=== PATIENT | male | born 1970 | race Caucasian/White ===

== ENCOUNTER 2017-07-16 06:07 | Inpatient (IN) | payer OTHER ==
[~2017-07-16] VITALS: Ht 185.4 cm; Wt 119.8 kg
[2017-07-16] VITALS (8 sets, daily range): BP systolic 96–148; BP diastolic 63–86
--- NOTE | ~2017-07-16 | PR ---
[place], [place] PROGRESS NOTE NAME: SARITHA ESPINOZA [facility] #: [id number] UNIT #: [id number] ROOM: 504 DOCTOR: ALYCE HERNANDEZ MD,MIGUELITO BIRTHDATE: [birth year] DOS: 07/17/2017 PULMONARY FOLLOWUP SUBJECTIVE: He has been noted comfortable at this time, resting on the bed. Chest tube remains in place in the right hemithorax. It had been connected to drainage. The patient noted some subcutaneous emphysema, Dilaudid for this patient in the last 24 hours. He has not been noted symptoms of chest pain, air leak was noted for the chest tube at times. The patient does have symptoms of hemoptysis. The chest pain has been controlled with use of pain medications. OBJECTIVE: VITAL SIGNS: Normal temperature, respiratory rate 18, heart rate 86, blood pressure 168/86. The pulse oxygen saturation for the patient recorded on 2 liters nasal cannula 95% saturation. HEENT: Chronic obesity. NECK: Supple. CARDIOVASCULAR: S1, S2 audible. LUNGS: Without any wheezing or crackles. Breaths are noted mild to moderate decreased bilaterally. ABDOMEN: Soft, nontender. LABORATORY DATA: BMP today: BUN and creatinine were normal, glucose 133. The liver function tests normal. PT/PTT normal today. The chest x-ray of patient noted well-expanded lungs, moderate area of subcutaneous emphysema, lung remained expanded. CT scan of the chest that was ordered by myself was done this morning and personally reviewed. The chest tube remains in place in the lateral portion of the chest wall. Lung remained expanded. 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 There was area of paraseptal emphysema changes noted, which may be related to the current underlying intrinsic lung disease. IMPRESSION: 1. The patient with spontaneous pneumothorax. The patient in the right side with air leak. 2. 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 3. History of chronic nicotine abuse. 4. Chronic moderate obesity. Urine drug screen was also noted with ____ confirmed absence of any illicit drug use as well. PLAN OF MANAGEMENT: The patient needs to be transferred to another facility for thoracic surgery consultation and the VATS procedure for the most definitive medical management of recurrent pneumothorax as the recurrence of the pneumothorax will be noted extremely high for the patient with this current lung condition. It is also necessary to manage the air leak as well. Left side lung also noted significant paraseptal emphysema changes of status for this patient, [place], [place] PROGRESS NOTE NAME: SARITHA ESPINOZA UNIT #: [id number] ROOM: [facility] DOCTOR: ALYCE HERNANDEZ MD,MIGUELITO BIRTHDATE: [birth year] which are noted in the pleural surface with multiple areas of irregular cystic lesions in the left lung as well. Continuation of bronchodilator, the chest tube remains to suction. The transfer recommendation has been discussed with the patient in detail and he accepted that. The case was also discussed with Dr. Olesya Sellers who is taking care of this patient today as the primary care attending for the transfer arrangement. I did speak with Dr. Cuello, he is a thoracic surgeon at [facility]. If the patient is transferred there, he will be taking over the patient and agreed with the transfer as well. All the medical records including the CT scans for this patient and actions will be sent along with the patient at the time of the transfer. The patient was told about absolute tobacco cessation, which will be mandatory for this condition to avoid any progression. MIGUELITO MEAD MD CM:PNTRANS [id number] MIGUELITO HERNANDEZ MD 07/17/[id number] interface
--- NOTE | ~2017-07-16 | EKG ---
[place], [place] ELECTROCARDIOGRAM REPORT NAME: SARITHA ESPINOZA UNIT #: [id number] ROOM: 504 DOCTOR: ALYCE HERNANDEZ MD,MIGUELITO BIRTHDATE: [birth year] DOS: 07/16/2017 ELECTROCARDIOGRAM The electrocardiogram done at 07/16/2017 at 6:13 a.m. Electrocardiogram shows sinus tachycardia. The patient with the baseline wandering axis. The heart rate was noted as 111 beats per minute. Poor R-wave progression with the patient was also considered. Clinical correlation would be advised. MIGUELITO MEAD MD CM:EKGRPT:ELECTROCARDIOGRAM REPORT [id number] MIGUELITO HERNANDEZ MD
--- NOTE | ~2017-07-16 | CON ---
[place], [place] REPORT OF CONSULTATION NAME: SARITHA ESPINOZA [facility] #: [id number] UNIT #: [id number] ROOM: 504 DOCTOR: ALYCE HERNANDEZ MDMIGUELITO BIRTHDATE: [birth year] DOS: 07/16/2017 PULMONARY CONSULTATION EVALUATION AND MANAGEMENT CONSULTATION REQUESTED BY: Hospitalist services, Dr. Sukhjinder Payan. REASON FOR CONSULTATION: Assessment of the current acute pneumothorax for this patient of the right side with chest tube in place. HISTORY OF PRESENT ILLNESS: A 46-year-old white male patient who has not been previously diagnosed with any pulmonary disease. The patient noted chronic history of tobacco use, a pack of cigarettes per day or more presented to the hospital. The patient developed acute chest pain at home. The pain for the patient described to be according for this patient about 24 hours prior to admission to the hospital started with midsternal chest pain. Pain was described mild to moderate. The patient came after work ____ and then decided to come to the hospital. He came into the hospital. The patient was brought by the family members for assessment of the current chest pain. The patient denies any symptoms of hemoptysis with that. He has been noted with ongoing cough intermittently for the past several weeks, which has not been resolved. He denies symptoms of wheezing. As the patient presented to the Emergency Room, he has been assessed with the radiology testing and noted with acute right-sided large pneumothorax with almost complete atelectasis of the right lung. Chest tube for this patient 20-Bengali chest tube was inserted by the Emergency Room physician. The chest tube was noted in place for this patient at this time and connected to the Pleur-evac. REVIEW OF SYSTEMS: CONSTITUTIONAL: Fatigue and tiredness noted without symptoms of fever or chills. EYES: Denies any burning, redness, or tenderness. EARS, NOSE, THROAT: No sore throat, hoarseness, otalgia, postnasal drainage or epistaxis. CARDIOVASCULAR: Denies anginal pain, edema or pain of the lower extremities. GASTROINTESTINAL: Denies dysphagia, nausea, vomiting, diarrhea, abdominal pain, hematemesis, melena, hematochezia. SKIN: Denies lesions or rashes. MUSCULOSKELETAL: No acute joint pain, redness, or tenderness. SKIN: Denies lesions or rashes. CENTRAL NERVOUS SYSTEM: No dizziness, headache, diplopia, syncopal episodes. Remaining systems were reviewed and they were noted all negative. PAST MEDICAL HISTORY: Noted with history of: 1. Chronic nicotine dependence. 2. Obesity. SOCIAL HISTORY: The patient is and lives at home. Tobacco use noted since teenager about a pack of cigarettes or so done by the patient. There was no history of alcohol use or any illicit drug use described. [place], [place] REPORT OF CONSULTATION NAME: SARITHA ESPINOZA UNIT #: [id number] ROOM: [facility] DOCTOR: MIGUELITO MIR MD BIRTHDATE: [birth year] PAST SURGICAL HISTORY: Essentially noted none. FAMILY HISTORY: The patient's mother is an 82 years old with history of CVA and diabetes. The father was at the age of 7070 years old. Further history details were not known by the patient. HOME MEDICATIONS: Reported as none. DRUG ALLERGIES: Noted with no known drug allergies. PHYSICAL EXAMINATION: GENERAL: This is a 46-year-old white male patient who has been currently noted with a chest tube in place, comfortable without any respiratory distress. Height of 6 feet 1 inch, weight of 264 pounds noted with BMI of 34.8. VITAL SIGNS: Shows normal temperature, respiratory rate ranges between 18-20, heart rate 85-110, blood pressure 121-63 to 140/86. Pulse oxygen saturation of the patient was recorded as 92% on 4 L nasal cannula. HEENT: Examination shows head was atraumatic. Eyes nonicterus. NECK: Supple. CARDIOVASCULAR: S1, S2 is audible. LUNGS: Noted moderate decreased breath sounds bilaterally without any wheezing or crackles heard. ABDOMEN: Soft with moderate obesity, bowel sounds present without tenderness. EXTREMITIES: Does not show any edema, clubbing or cyanosis. CENTRAL NERVOUS SYSTEM: Noted without any focal neurologic deficit. Cranial nerves 2-12 intact. MUSCULOSKELETAL: No acute deformities. LABORATORY DATA: PT and PTT today was noted normal on admission. CMP of the patient that was done this morning was noted normal except total protein mildly elevated at 8.5, unknown significance. The troponin was also noted as normal. The chest x-ray of the patient that was done on 07/16/2017 at 6:46 a.m. was noted as complete atelectasis. The patient noted right lung with a large right-sided pneumothorax. The left lung was noted clear. Mild shift of the mediastinum noted towards the left. The chest x-ray of the patient that was done after insertion of the chest tube was reviewed as well. The chest x-ray of the patient that was done at 7:40 a.m. after the insertion of chest tube was noted with almost complete reexpansion of the right lung. Chest tube was noted in place. IMPRESSION: 1. The patient who has been currently noted with spontaneous right-sided pneumothorax with history of chronic nicotine abuse without any known multiple medical problems. Complete atelectasis was noted. Air leak was noted at the present time for this patient through the chest tube Pleur-Evac, which has been noted ____ suction. 2. History of moderate obesity. PLAN OF MANAGEMENT: Order the urine for drug screen as well to assess for use [place], [place] REPORT OF CONSULTATION NAME: SARITHA ESPINOZA UNIT #: [id number] ROOM: [facility] DOCTOR: MIGUELITO MIR MD BIRTHDATE: [birth year] of any illicit drugs even though it is not reported as a cause of the pneumothorax. Further assessment of the pneumothorax will be done with obtaining a CT scan of the chest. At this time, the patient has not been noted without any problems, which describe any structural lung disease except the tobacco use with primary spontaneous pneumothorax remains in consideration. The plan of management. CT scan of the chest will be done tomorrow morning for this patient for assessment of the lung architecture more closely. Keep the chest tube to the Pleur-evac suction, use of the pain medications. Nicotine replacement patches therapy to overcome any nicotine withdrawal. Based on that further structural assessment for this patient, further intervention assessment will be ordered. Also, I will be ordering the alpha 1 antitrypsin level for this patient to be done on this admission to assess any structural abnormality with early emphysema onset with nicotine dependence. Other supportive plan of management and care and therapies. Usual care. Thanks for allowing me to participate in the care of this patient. MIGUELITO MEAD MD CM:CONSTR:REPORT OF CONSULTATION 1300 07/17/17 0253 interface
[~2017-07-16 06:07] MED LIST: PREDNISONE50 MG PO; ZITHROMAX250 MG PO
[2017-07-16 06:28] LABS: BASO % 0.2 % (0.0-1.0); EOS # 0.1 10*3/uL (0.0-0.4); EOS % 0.9 % (1.0-4.0); HEMATOCRIT 46.7 % (42.0-52.0); HEMOGLOBIN 16.5 g/dl (14.0-18.0); LYMPH % 21.9 % (27.0-41.0); MEAN CELL VOLUME 91.7 fl (80.0-94.0); MEAN CORPUSCULAR HGB 32.4 pg (27.0-31.0); MEAN CORPUSCULAR HGB CONC 35.3 g/dl (33.0-37.0); MEAN PLATELET VOLUME 10.2 fl (9.6-12.3); MONO # 1.1 10*3/uL (0.1-1.0); MONO % 7.9 % (3.0-9.0); NEUT # 9.4 10*3/uL (2.3-7.9); NEUT % 68.8 % (47.0-73.0); PLATELET COUNT AUTOMATED 293 10*3/uL (130-400); RED BLOOD COUNT 5.09 10*6/uL (4.50-5.90); WHITE BLOOD COUNT 13.7 10*3/uL (4.8-10.8)
[2017-07-16 06:38] LABS: ACT PARTIAL THROMBO TIME 26.3 SECONDS (20.8-31.5)
--- NOTE | 2017-07-16 06:43 | NUR ---
ONLY ONE SL NITRO GIVEN. PT STATES CHETS PAIN IS RELIEVED
--- NOTE | 2017-07-16 06:45 | NUR ---
PT BLOOD PRESSURE READ 65/44. PT IMMEDIATELY GIVEN LITER OF FLUID ON PRESSURE BAG. AT THIS TIME, DR ALDANA NOTIFED THAT PT HAD PNEUMOTHORAX BY RADIOLOGY. DR ALDANA AT BEDSIDE TO PLACE CHEST TUBE. 20 SLOVAK ON RIGHT CHEST WALL. TUBE HOOKED TO [facility] CHEST TUBE SUCTION KIT. AUSCULTATED LUNGS BL. CHEST TUBE PLACEMENT CONFIRMED VIA X RAY. PT VSS AT THIS TIME. PT TOLERATED PROCEDURE WELL. XEROFORM GAUZE AND GAUZE DRESSING APPLIED. INTERMITTENT BUBBLING NOTED IN CHAMBER OF WATER SEAL.
[2017-07-16 06:55] LABS: ALBUMIN 4.1 gm/dl (3.1-4.5); ALKALINE PHOSPHATASE 94 U/L (45-117); BUN 16 mg/dl (7-24); CHLORIDE 99 mmol/L (98-107); CREATININE 0.94 mg/dL (0.70-1.30); LIPASE 106 U/L (73-393); MAGNESIUM 2.1 mg/dL (1.5-2.1); POTASSIUM 3.9 mmol/L (3.5-5.1); SGOT/AST 23 IU/L (3-35); SGPT/ALT 27 U/L (12-78); SODIUM 137 mmol/L (136-145); TOTAL PROTEIN 8.5 gm/dL (6.4-8.2)
[2017-07-16 06:57] LABS: TROPONIN I < 0.015 ng/ml (<0.045)
--- NOTE | 2017-07-16 07:30 | NUR ---
REPORT ACCEPTED. CHEST TUBE IN PLACE. NO AIR LEAKS, NO BUBBLING. PT REPORTS SOB AND CHEST PAIN RESOLVED. LUNGS CLEAR ALL MCKAY WITH GOOD SOUNDS THROUGHOUT. POX 99% ON 4L NC O2. PT IS AWAKE AND ALERT. SKIN IS PINK, WARM AND DRY. LOW WALL SUCTION VIA [facility] DEVICE. VITALS STABLE (SEE). NO VOICED COMPLAINTS. ADMISSION PENDING.
--- NOTE | 2017-07-16 08:38 | NUR ---
DURING ELEVATOR RIDE TO [facility] AN INTERMITTENT AIR LEAK WAS NOTED WITH SEVERAL BUBBLES IN AIRSEAL CHAMBER EVERY [address] MEAD WAS IN PATIENT ROOM UPON ARRIVAL TO EXAM BED AND WAS INFORMED. PT'S NURSE ON [facility] ALSO MADE AWARE. NO CHANGE IN PT CONDITION. HE CONTUNUES TO DENY SOB, POX REMAINED 99% ON 4L NC AND LUNG SOUNDS WERE RE-AUSCULTATED THROUGHOUT.
--- NOTE | 2017-07-16 09:00 | NUR ---
Time: 899 A 46 year old M admitted to 5E under services of ANDRIA CAMPOS DO. Pt. arrived via stretcher from ER. Chief complaint: S/P CHEST TUBE INSERTION AFTER SPONTANEOUS TENSION PNEUMOTHORAX.. DR MEAD AWARE OF CONSULT & BRIEFLY SAW PT ONCE PT CAME TO 5E, STATES HE WILL RETURN TO SEE PT. MEHUL DELEON
--- NOTE | 2017-07-16 09:50 | NUR ---
ARNIE GANN IN TO SEE PT, AWARE THAT PT HAS CREPITUS & AIR LEAK. PT IS IN NO DISTRESS. EASY RESPIRATIONS WITH SKIN W/D. CHEST TUBE MAINTAINED TO 20 CM SUCTIONING, NO DRAINAGE NOTED. PT IS TALKING & JOKING WITH FAMILY & STAFF. VSS & CHARTED. WILL CONTINUE TO MONITOR CLOSELY. PER ARNIE GANN, SHE KNOWS THAT DR MEAD IS AWARE OF CONSULT.
--- NOTE | 2017-07-16 10:20 | NUR ---
MEDICATED PO ORDERED PER PT REQUEST WITH NORCO FOR C/O CHEST TUBE INSERTION SITE PAIN. PT RATES PAIN /10. WILL CONTINUE TO MONITOR. SEE EMAR.
--- NOTE | 2017-07-16 11:14 | NUR ---
HOB ELEVATED, EASY RESPIRATIONS WITH SKIN W/D. FAMILY AT BEDSIDE. PT STATES "FEELING ALITTLE BETTER" WILL CONTINUE TO MONITOR.
--- NOTE | 2017-07-16 15:13 | NUR ---
PT GIVEN NORCO PER REQUEST FOR PAIN RATED 5/10.
--- NOTE | 2017-07-16 15:22 | NUR ---
SPOKE WITH DR MEAD REGARDING AIR LEAK TO CHEST TUBE, STATES HE IS AWARE & SAW THE PATIENT EARLIER THIS SHIFT. PT IS HEMODYNAMICALLY STABLE AT THIS TIME. WILL CONTINUE TO MONITOR.
[2017-07-16 16:24] LABS: URINE AMPHETAMINES < 1000 (1000ng/ml); URINE BARBITURATES < 200 (200ng/ml); URINE BENZODIAZEPINES < 200 (200ng/ml); URINE CANNABINOIDS (THC) < 50 (50ng/ml); URINE COCAINE < 300 (300ng/ml); URINE METHADONE < 300 (300ng/ml); URINE OPIATES > 300 (300ng/ml); URINE PHENCYCLIDINE < 25 (25ng/ml)
--- NOTE | 2017-07-16 19:37 | NUR ---
PT GIVEN NORCO PER REQUEST FOR PAIN R/T CHEST TUBE.
--- NOTE | 2017-07-16 21:00 | NUR ---
EARLIER MEDS APPEAR EFFECTIVE. AWAKE BUT RESTING WITH EYES CLOSED. RESPIRATIONS EASY. LUNGS DIMINISHED. CHEST TUBE NOTED TO RIGHT UPPER ANTERIOR CHEST, CONNECTED TO WALL SUCTION WITH SCANT BLOODY DRAINAGE NOTED IN TUBE. PATIENT DESCRIBES CHEST TUBE UNCOMFORTABLE BUT NOT PAINFUL. OFFERED AND EDUCATED REGARDING PRN MEDS, DECLINED AT THIS TIME. CALL LIGHT WITHIN REACH. NO VOICED COMPLAINTS
[2017-07-17] VITALS: BP 132/80
--- NOTE | 2017-07-17 00:16 | NUR ---
REQUESTED AND RECEIVED NORCO PER PRN ORDER FOR COMPLAINTS OF PAIN RATING AN 8 D/T CHEST TUBE INSERTION. CALL LIGHT WITHIN REACH. WILL MONITOR FOR EFFECTIVENESS
--- NOTE | 2017-07-17 02:00 | NUR ---
MEDS EFFECTIVE, SLEEPING
--- NOTE | 2017-07-17 03:58 | NUR ---
REQUESTED AND RECEIVED NORCO PER PRN ORDER FOR COMPLAINTS OF PAIN D/T CHEST TUBE INSERTION. WILL MONITOR FOR EFFECTIVENESS
--- NOTE | 2017-07-17 05:00 | NUR ---
EARLIER MEDS APPEAR EFFECTIVE. RESTING WITH EYES CLOSED. RESPIRATIONS EASY. O2 IN USE. CHEST TUBE MAINTAINED. CALL LIGHT WITHIN REACH
[2017-07-17 06:17] LABS: BASO % 0.1 % (0.0-1.0); EOS # 0.1 10*3/uL (0.0-0.4); EOS % 0.5 % (1.0-4.0); HEMATOCRIT 42.1 % (42.0-52.0); LYMPH # 1.1 10*3/uL (1.3-4.4); LYMPH % 11.2 % (27.0-41.0); MEAN CORPUSCULAR HGB 32.4 pg (27.0-31.0); MONO # 0.8 10*3/uL (0.1-1.0); MONO % 8.6 % (3.0-9.0); NEUT # 7.6 10*3/uL (2.3-7.9); NEUT % 79.3 % (47.0-73.0); PLATELET COUNT AUTOMATED 216 10*3/uL (130-400); RED BLOOD COUNT 4.42 10*6/uL (4.50-5.90); RED CELL DISTRI WIDTH 12.1 % (0-14.5); WHITE BLOOD COUNT 9.6 10*3/uL (4.8-10.8)
[2017-07-17 06:34] LABS: HEMOGLOBIN 14.3 g/dl (14.0-18.0); MEAN CELL VOLUME 95.2 fl (80.0-94.0)
[2017-07-17 06:50] LABS: ALBUMIN 3.5 gm/dl (3.1-4.5); BUN 16 mg/dl (7-24); CHLORIDE 99 mmol/L (98-107); POTASSIUM 3.9 mmol/L (3.5-5.1); SODIUM 136 mmol/L (136-145)
[2017-07-17 07:02] LABS: ALKALINE PHOSPHATASE 82 U/L (45-117); CREATININE 0.86 mg/dL (0.70-1.30); FREE T4 1.13 ng/dl (0.76-1.46); PHOSPHOROUS 3.1 mg/dL (2.5-4.9); SGOT/AST 16 IU/L (3-35); SGPT/ALT 24 U/L (12-78); TOTAL PROTEIN 7.5 gm/dL (6.4-8.2)
[2017-07-17 07:05] LABS: ALPHA-1-ANTITRYPSIN, SERUM 122 mg/dL (90-200)
[2017-07-17 07:14] LABS: ACT PARTIAL THROMBO TIME 27.4 SECONDS (20.8-31.5)
--- NOTE | 2017-07-17 07:49 | NUR ---
Shift chart check completed.
[2017-07-17 08:00] VITALS: BP 168/86
--- NOTE | 2017-07-17 08:00 | NUR ---
PATIENT MEDICATED WITH IVP MORPHINE FOR PAIN 6/10 IN HIS RIGHT CHEST
[2017-07-17 08:36] LABS: VITAMIN D, 25-HYDROXY 11.4 ng/mL (30-100)
--- NOTE | 2017-07-17 09:00 | NUR ---
PATIENT STATES MEDICATION EFFECTIVE
--- NOTE | 2017-07-17 09:43 | NUR ---
PATIENT MEDICATED WITH IVP ZOFRAN FOR NAUSEA
--- NOTE | 2017-07-17 10:30 | NUR ---
PATIENT STATES ZOFRAN EFFECTIVE
--- NOTE | 2017-07-17 10:31 | NUR ---
PATIENT MEDICATED WITH PO NORCO FOR PAIN IN HIS RIGHT CHEST 10
--- NOTE | 2017-07-17 11:31 | NUR ---
PATIENT STATES MEDICATION EFFECTIVE
[2017-07-17] MEDS ORDERED: TYLENOL325 M2 PO (12:44)
[2017-07-17] MEDS ORDERED: ENOXAPARIN40 MG/0.2 SC (12:44)
[2017-07-17] MEDS ORDERED: NORCO 5/325 PO (12:44)
[2017-07-17] MEDS ORDERED: DUONEB 3 MG/3 ML3 M1 NEB (12:44)
[2017-07-17] MEDS ORDERED: NICODERM T (12:44)
[2017-07-17] MEDS ORDERED: ZOLPIDEM TART10 MG PO (12:44)
[2017-07-17] MEDS ORDERED: Vitamin D PO (12:44)
[2017-07-17] MEDS ORDERED: MORPHINE SU2 MG/1 M2 IV (12:44)
--- NOTE | 2017-07-17 14:52 | NUR ---
CALLED REPORT TO JAMES AT [facility].
--- NOTE | 2017-07-17 16:11 | NUR ---
PATIENT MEDICATED WITH IVP MORPHINE FOR PAIN IN HIS RIGHT CHEST AND BEFORE AMBULANCE TRANSPORT TO [place]. AMBULANCE IS HERE. PATIENT LEFT VIA AMBULANCE WITHOUT DIFFICULTY. PATIENT IS TRANSFERRED TO [place].
== END 2017-07-17 16:20 | disposition short-term general hospital (02) | DRG 199 ==
LOC: ED 06:07 → EDHOLD 07:28 → 5E 07:28
PROVIDERS: Emergency Medicine; Internal Medicine; Internal Medicine Critical Care Medicine; ADMIT Internal Medicine
PROC: 0W9930Z Drainage of Right Pleural Cavity with Drainage Device, Percutaneous Approach (ICD-10-PCS; principal; 2017-07-16)
DX: J93.0 Spontaneous tension pneumothorax (principal); J18.9 Pneumonia, unspecified organism; J84.82 Adult pulmonary Langerhans cell histiocytosis; R65.10 Systemic inflammatory response syndrome (SIRS) of non-infectious origin without acute organ dysfunction; J44.0 Chronic obstructive pulmonary disease with (acute) lower respiratory infection; J44.9 Chronic obstructive pulmonary disease, unspecified; E66.8 Other obesity; Z68.34 Body mass index [BMI] 34.0-34.9, adult

== ENCOUNTER 2018-10-03 12:13 | Emergency (ER) | payer OTHER ==
[~2018-10-03] VITALS: Ht 185.4 cm; Wt 117.9 kg
[~2018-10-03 12:13] MED LIST changes: +DUONEB 3 MG/3 ML3 M1 NEB; +ENOXAPARIN40 MG/0.2 SC; +MORPHINE SU2 MG/1 M2 IV; +NICODERM T; +NORCO 5/325 PO; +TYLENOL325 M2 PO; +Vitamin D PO; +ZOLPIDEM TART10 MG PO
[2018-10-03] MEDS ORDERED: AVPAK AZITHROM250 MG PO (16:10)
== END 2018-10-03 16:16 | disposition home or self-care (01) ==
LOC: ED 12:13
DX: J18.1 Lobar pneumonia, unspecified organism (principal); J44.9 Chronic obstructive pulmonary disease, unspecified; Z79.899 Other long term (current) drug therapy